=== PATIENT | female | born 1945 | race Caucasian/White ===

== ENCOUNTER 2016-10-19 21:07 | Emergency (ER) | payer MEDICARE, OTHER ==
[2016-10-19 21:24] VITALS: BP 165/108; PULSE 75; TEMP 99; BMI 27.2
[2016-10-19] MEDS ORDERED: CYCLOBENZAPRINE HCL 10 MG TABLET (FP) ONE (21:32)
[2016-10-19] MEDS ORDERED: HYDROmorphone HCL CARPU-JECT 1 MG/1 ML DISP.SYRIN IM ONE (21:32)
[2016-10-19] MEDS ORDERED: CYCLOBENZAPRINE HCL 10 MG TABLET (FP) PO ONE (21:32)
[2016-10-19] MEDS ORDERED: HYDROmorphone HCL CARPU-JECT 1 MG/1 ML DISP.SYRIN ONE (21:33)
--- NOTE | 2016-10-19 21:51 | PDOC ---
History of Present Illness - General Chief Complaint: Pain Stated Complaint: Hip Pain Time Seen by Provider: 10/19/16 21:20 History Source: Patient, Family Exam Limitations: No Limitations - History of Present Illness Initial Comments: 10/19/16 21:35 Patient is a 70 year old female with h/o hypothyroid, arthritis, depresssion, HLD, allergy rhinitis, c/o right hip pain x 1 week. States she feel on 10/14/16 was seen in the ED xray done neg. Has been limping along until this evening about 1 hour ago when the pain got severe and has been unable to walk. Pain now 10/10 spasm like, worse with movement. She has been taking meloxicam and flexeril for the pain with minimal relief. Took Advil today last dose was 6 pm. Denies bowel of bladder incontinence, no saddle anesthesia. PMD: Dr. Chamberlain PMHX: as above PSochx: neg etoh, drug, cig Pfamhx: noncontributory ALL: NKDA GENERAL/CONSTITUTIONAL: [No fever or chills. No weakness. No weight change.] HEAD, EYES, EARS, NOSE AND THROAT: [No change in vision. No ear pain or discharge. No sore throat.] CARDIOVASCULAR: [No chest pain or shortness of breath.] RESPIRATORY: [No cough, wheezing, or hemoptysis.] GASTROINTESTINAL: [No nausea, vomiting, diarrhea or constipation. No rectal bleeding.] GENITOURINARY: [No dysuria, frequency, or change in urination.] MUSCULOSKELETAL: (+) joint or muscle swelling or pain. No neck or back pain.] SKIN AND BREASTS: [No rash or easy bruising.] NEUROLOGIC: [No headache, vertigo, loss of consciousness, or loss of sensation.] PSYCHIATRIC: (+) depression (-) anxiety.] ENDOCRINE: [No increased thirst. No abnormal weight change.] HEMATOLOGIC/LYMPHATIC: [No anemia, easy bleeding, or history of blood clots.] ALLERGIC/IMMUNOLOGIC: [No hives or skin allergy. No latex allergy.] GENERAL: [The patient is awake, alert, and fully oriented, in acute painful distress.] HEAD: [Normal with no signs of trauma.] EYES: [Pupils equal, round and reactive to light, extraocular movements intact, sclera anicteric, conjunctiva clear.] ENT: [Ears normal, nares patent, oropharynx clear without exudates. Moist mucous membranes.] NECK: [Normal range of motion, supple without lymphadenopathy, JVD, or masses.] LUNGS: [Breath sounds equal, clear to auscultation bilaterally. No wheezes, and no crackles.] HEART: [Regular rate and rhythm, normal S1 and S2 without murmur, rub.] ABDOMEN: [Soft, nontender, normoactive bowel sounds. No guarding, no rebound. No masses.] EXTREMITIES: decreased range of motion to the right leg at the hip, tenderness to the right hip and buttock, no edema. No clubbing or cyanosis. No cords, erythema, or tenderness.] NEUROLOGICAL: [Cranial nerves II through XII grossly intact. Normal speech, normal gait.] PSYCH: [Normal mood, normal affect.] SKIN: [Warm, Dry, normal turgor, no rashes or lesions noted.] Past History - Past Medical History Allergies/Adverse Reactions: Allergies Allergy/AdvReac Type Severity Reaction Status Date / Time No Known Allergies Allergy Verified 10/19/16 21:19 Home Medications: Ambulatory Orders Meloxicam [Mobic -] 7.5 mg PO HS 07/28/12 Multivitamin [Multivitamins] 1 each PO DAILY 07/28/12 Levothyroxine [Synthroid -] 88 mcg PO DAILY 01/11/16 Psyllium Seed [Metamucil] 1 each PO DAILY 01/11/16 Simvastatin 40 mg PO HS 01/11/16 Calcium Carbonate/Vitamin D3 [Calcium 500 + Vit D Caplet] 1 each PO DAILY Cyclobenzaprine HCl [Flexeril -] 10 mg PO HS 10/19/16 Oxycodone HCl/Acetaminophen [Percocet 5-325 mg Tablet] 1 tab PO Q4H #20 tablet MDD 6 10/20/16 Anemia: No Asthma: No Cancer: No Cardiac Disorders: No CVA: No COPD: No CHF: No Dementia: No Diabetes: No GI Disorders: Yes (HEMORRHOIDS;COLON POLYPS) Disorders: No HTN: No Hypercholesterolemia: Yes Liver Disease: No Seizures: No Thyroid Disease: Yes (HYPOTHYROIDISM) - Surgical History Abdominal Surgery: No Appendectomy: No Cardiac Surgery: No Cholecystectomy: Yes (01/2015) Lung Surgery: No Neurologic Surgery: No Orthopedic Surgery: No - Immunization History Td Vaccination: Yes Immunization Up to Date: Yes - Psycho/Social/Smoking Cessation Hx Anxiety: No Suicidal Ideation: No Smoking Status: No Smoking History: Never smoked Have you smoked in the past 12 months: No Number of Cigarettes Smoked Daily: 0 Information on smoking cessation initiated: No Hx Alcohol Use: No Drug/Substance Use Hx: No Substance Use Type: None Hx Substance Use Treatment: No *Physical Exam - Vital Signs Last Vital Signs Temp Pulse Resp BP Pulse Ox 99.0 F 75 20 165/108 99 10/19/16 21:11 10/19/16 21:11 10/19/16 21:11 10/19/16 21:11 10/19/16 21:11 ED Treatment Course - RADIOLOGY Radiology Studies Ordered: Category Date Time Status LUMBAR SPINE CT W/O CONTRAST [CT] Stat CT Scan 10/19/16 21:[address] WITHOUT CONTRAST [CT] Stat CT Scan 10/19/16 21:33 Ordered Medical Decision Making - Medical Decision Making 10/19/162119 Patient is a 70 year old female with h/o hypothyroid, arthritis, depresssion, HLD, allergy rhinitis, c/o right hip pain x 1 week, s/p fall. Was limping but but tonight the pain go worse unable to walk will r/o acute fracture. ct pelvis, l-spine Dilaudid 1 mg IM and flexeril 10mg po 10/20/16 00:05 Patient Name: Melisa Verma THIS IS A PRELIMINARYREPORT FROM IMAGING CANNING MACHINE OPERATOR EXAM: CT pelvis without contrast IMAGES: [id number] INDICATION: Right hip pain DATE OF SERVICE: 2016-10-19 22:17:34.0 COMPARISON: none FINDINGS: The pelvic small and large bowel are notable for sigmoid diverticulosis without diverticulitis. The appendix is normal. The uterus and adnexal structures are normal. Urinary bladder is unremarkable. There is no pelvic free fluid. No discrete pelvic lymphadenopathy is identified. Scattered bone densities likely represent bone islands. There is mild osteoarthritis of the SI joints. There are degenerative change of the lower lumbar spine, which are described on the accompanying CT of the lumbar spine. There is early osteoarthritis of both hips. No significant soft tissue abnormalities. IMPRESSION: Minimal osteoarthritis of both hips. Mild osteoarthritis of both SI joints. Degenerative changes lower lumbar spine. Sigmoid diverticulosis THIS DOCUMENT HAS BEEN ELECTRONICALLY SIGNED Robe Camilo MD 10/19/2016 23:06 [place] Please call Imaging Filler Spreader [phone] with questions. Patient Name: Melisa Verma THIS IS A PRELIMINARYREPORT FROM IMAGING CANNING MACHINE OPERATOR EXAM: CT lumbar spine without contrast IMAGES: [id number] INDICATION: Right hip pain DATE OF SERVICE: 2016-10-19 22:10:25.0 COMPARISON: none FINDINGS: There is no fracture or subluxation. The L1-2, L2-3 and L3-4 levels are normal. The L4-5 disc demonstrates a moderate sized bulge and moderate bilateral facet joint arthrosis, resulting in moderate central canal and bilateral recess narrowing with mild bilateral neural foraminal narrowing. L5/S1 disc demonstrates a small bulge with lateral osteophytic ridging and mild facet joint arthrosis which causes mild bilateral neural foraminal narrowing. IMPRESSION: Moderate central canal and both lateral recesses and mild bilateral neural pulmonary L4/5 due to disc bulge and facet joint arthrosis. Mild bilateral pulmonary L5/S1 due to a disc bulge and lateral osteophytic ridging. THIS DOCUMENT HAS BEEN ELECTRONICALLY SIGNED Robe Camilo MD 10/19/2016 23:04 [place] Please call Imaging Filler Spreader [phone] with questions. Patient is much improved she states pain now down to 3/10. She is ambulatory with steady gait. requesting to go home. I discussed the physical exam findings, ancillary test results and final diagnoses with the patient. I answered all of the patient's questions. The patient was satisfied with the care received and felt comfortable with the discharge plan and treatment plan. The Patient agrees to follow up with the primary care physician within 24-72 hours. *DC/Admit/Observation/Transfer Diagnosis at time of Disposition: Sciatica Qualifiers: Laterality: right Qualified Code(s): M54.31 - Sciatica, right side - Discharge Dispostion Disposition: HOME Condition at time of disposition: Stable - Prescriptions Prescriptions: Oxycodone HCl/Acetaminophen [Percocet 5-325 mg Tablet] 1 tab PO Q4H #20 tablet MDD 6 - Referrals Referrals: Merry Ignacio MD [Primary Care Provider] - - Patient Instructions Printed Discharge Instructions: DI for Sciatica Additional Instructions: Your Discharge Instructions: You must call primary care physician within 24 hours to arrange follow-up. Return to the Emergency Department with any new, persistent or worsening symptoms, for fever, chills, SOB, dizziness or any other concerning changes that may occur. you may need to take orthopedist to get referral for rehabilitation
[2016-10-19 23:19] LABS: URINE APPEARANCE SLCLOUDY; URINE BILIRUBIN NEGATIVE (NEGATIVE); URINE BLOOD NEGATIVE (NEGATIVE); URINE COLOR LTYELLOW; URINE GLUCOSE (UA) NEGATIVE (NEGATIVE); URINE KETONE NEGATIVE (NEGATIVE); URINE NITRITE NEGATIVE (NEGATIVE); URINE PROTEIN NEGATIVE (NEGATIVE); URINE UROBILINOGEN NEGATIVE E.U./dl (0.2-1.0)
[2016-10-19 23:20] LABS: URINE LEUK ESTERASE 3+ (NEGATIVE)
[2016-10-19 23:21] LABS: URINE MUCUS RARE; URINE RBC 2 /hpf (0-3); URINE WBC 7 /hpf (3-5)
== END 2016-10-20 00:21 | disposition home or self-care (01) ==
LOC: JER 21:07
PROC: 3E0233Z Introduction of Anti-inflammatory into Muscle, Percutaneous Approach (ICD-10-PCS; principal; 2016-10-19)
DX: M54.31 Sciatica, right side (principal); M16.0 Bilateral primary osteoarthritis of hip; E03.9 Hypothyroidism, unspecified; E78.00 Pure hypercholesterolemia, unspecified; F32.9 Major depressive disorder, single episode, unspecified
CPT/HCPCS: 72131-TC; 72192-TC; 81003; 81015; 96372; 99282-25

== ENCOUNTER 2018-07-03 21:54 | Emergency (ER) | payer MEDICARE ==
[2018-07-03] MEDS ORDERED: ALBUTEROL SO4 2.5/IPRATROPIUM 0.5 INH SOL 3 ML VIAL.NEB. NEB ONE ×2 (22:04→22:09)
[2018-07-03 22:08] VITALS: BP 178/98; PULSE 80; TEMP 98.6; BMI 27.2
--- NOTE | 2018-07-03 22:54 | PDOC ---
History of Present Illness - General Chief Complaint: Respiratory Stated Complaint: COUGH X 4 DAYS Time Seen by Provider: 07/03/18 21:59 - History of Present Illness Initial Comments: 07/03/18 23:08 72 years old past medical history significant for endometriosis osteoarthritis hemorrhoids presents to the ED with 34 day history of cough. No fever clear, sputum. Symptoms are worse at ngiht, intermittent. Also compaing of achy muscular pain but only when coughing at rest not with exertion. Several family members have had the same symptoms over the last 1 week. 07/03/18 23:11 Past History - Past Medical History Allergies/Adverse Reactions: Allergies Allergy/AdvReac Type Severity Reaction Status Date / Time No Known Allergies Allergy Verified 10/19/16 21:19 Home Medications: Ambulatory Orders Meloxicam [Mobic -] 7.5 mg PO HS 07/28/12 Multivitamin [Multivitamins] 1 each PO DAILY 07/28/12 Levothyroxine [Synthroid -] 88 mcg PO DAILY 01/11/16 Psyllium Seed [Metamucil] 1 each PO DAILY 01/11/16 Simvastatin 40 mg PO HS 01/11/16 Calcium Carbonate/Vitamin D3 [Calcium 500 + Vit D Caplet] 1 each PO DAILY Benzonatate [Tessalon Pearls -] 100 mg PO TID #21 capsule 07/03/18 Guaifenesin/Dextromethorphan [Mucinex Fast-Max Dm Max Liquid] 15 ml PO ONCE Anemia: No Asthma: No Cancer: No Cardiac Disorders: No CVA: No COPD: No CHF: No Dementia: No Diabetes: No GI Disorders: Yes (HEMORRHOIDS;COLON POLYPS) Disorders: No HTN: No Hypercholesterolemia: Yes Liver Disease: No Seizures: No Thyroid Disease: Yes (HYPOTHYROIDISM) Other medical history: KNEE PAIN - Surgical History Abdominal Surgery: No Appendectomy: No Cardiac Surgery: No Cholecystectomy: Yes (01/2015) Lung Surgery: No Neurologic Surgery: No Orthopedic Surgery: No - Immunization History Td Vaccination: Yes Immunization Up to Date: Yes - Suicide/Smoking/Psychosocial Hx Smoking Status: No Smoking History: Never smoked Have you smoked in the past 12 months: No Number of Cigarettes Smoked Daily: 0 Hx Alcohol Use: No Drug/Substance Use Hx: No Substance Use Type: None Hx Substance Use Treatment: No Review of Systems - Review of Systems Comments:: 07/03/18 23:08 *Physical Exam - Vital Signs Last Vital Signs Temp Pulse Resp BP Pulse Ox 98.6 F 80 16 178/98 H 99 07/03/18 21:55 07/03/18 21:55 07/03/18 21:55 07/03/18 21:55 07/03/18 21:55 - Physical Exam Comments: 07/03/18 23:09 Vitals: Triage Vital signs reviewed General Appearance: no acute distress, well nourished well developed, Head: Atraumatic, Eyes: Pupils equal reactive round, extraocular movement intact Nose: Nares patent bilaterally;+ nasal congestion Throat: Posterior oropharynx without erythema, mucous membranes moist, Neck: Supple;No Nucal rigidity Chest Wall: Nontender Cardiac: Regular rate and rhythym, no murmurs, no rubs, no gallops, Lungs: Clear to auscultation bilateral, good air movement bilaterally, Abdomen: Soft, non distended, normal bowel sounds, non tender to palpation Extremities: Full range of motion to all extremities, no cyanosis, clubbing, or edema Skin: Warm and dry, no rashes or lesions, no rash, no petechiae Psych: normal mood, normal affect ED Treatment Course - RADIOLOGY Radiology Studies Ordered: Category Date Time Status CXRPORT [CHEST X-RAY PORTABLE*] [RAD] Stat Radiology 07/03/18 22:04 Taken - Medications Given in the ED: ED Medications Discontinued Medications Generic Name Dose Route Start Last Admin Trade Name Freq PRN Reason Stop Dose Admin Albuterol/Ipratropium 1 amp 07/03/18 22:04 07/03/18 22:12 Duoneb - NEB 07/03/18 22:05 1 amp ONCE ONE Administration Medical Decision Making - Medical Decision Making 07/03/18 23:09 Well-appearing no apparent distress history examination consistent with viral URI on examination patient with nasal congestion red nose clear sputum lungs are clear to auscultation a chest x-ray was performed which demonstrated no acute pathology no pneumonia was demonstrated. History and examination consistent with URI 1 Duo Neb treatment given in the emergency department with some improvement of symptoms we'll recommend Tensilon Perles Coricidin decongestant and Ventolin MDI when necessary Findings, need for follow-up and strict return instructions discussed with patient. *DC/Admit/Observation/Transfer Diagnosis at time of Disposition: Upper respiratory infection Qualifiers: URI type: unspecified URI Qualified Code(s): J06.9 - Acute upper respiratory infection, unspecified - Discharge Dispostion Disposition: HOME Condition at time of disposition: Good Decision to Admit order: No - Referrals Referrals: Merry Ignacio MD [Primary Care Provider] - - Patient Instructions Printed Discharge Instructions: DI for Viral Upper Respiratory Infection -- Adult Additional Instructions: Drink plenty of fluids. Purchase [id number] Coricidin decongestant. Take as prescribed. Tessalon Perles as prescribed. Ventolin nebulizer every 4-6 hours as needed for cough. Return to ED immediately for any fever severe chest pain shortness of breath or for any concerns. Otherwise follow-up with your primary care provider in 2-3 days. - Post Discharge Activity
== END 2018-07-03 23:20 | disposition home or self-care (01) ==
LOC: SUPCPDRO 21:54 → FER 21:54
PROC: 3E0F7GC Introduction of Other Therapeutic Substance into Respiratory Tract, Via Natural or Artificial Opening (ICD-10-PCS; principal; 2018-07-03)
DX: J06.9 Acute upper respiratory infection, unspecified (principal); E03.9 Hypothyroidism, unspecified
CPT/HCPCS: 71045-TC-FY; 99281-25

== ENCOUNTER 2019-10-10 10:33 | Emergency (ER) | payer OTHER, MEDICARE ==
[2019-10-10 10:56] VITALS: TEMP 98; BMI 27.2
--- NOTE | 2019-10-10 11:05 | PDOC ---
History of Present Illness - General Chief Complaint: Rectal Bleed Stated Complaint: RECTAL BLEEDING Time Seen by Provider: 10/10/19 10:37 History Source: Patient Exam Limitations: No Limitations - History of Present Illness Travel History: No Initial Comments: 10/10/19 11:05 73y F hx of GERD, HL, diverticulosis, endometriosis, OA, thyroid disease, constipation, hemorroids, presents with complaint of 2 days of rectal bleeding. Pt on metamucil for her constipation at baseline, since thursday, pt endorses increassed amount of bleeding in the toilet bowl and in the toilet paper. pt states her stool doesnt appear black, but appears yellow/brown when she wipes. Patient also notes that as she is having a bowel movement she will have dripping of blood. Pt notse she has chronic hemorroids but has never had bleding. She notes that the stool is well formed and she does strain slightly, But has not been pushing more than usual. pt fitz any cp, sob, fever/chills, n/v, lightheadedness, palpitations, abd pain , back pain, kendall. pt had colonscopy showing diverticulosis 6 yrs ago and neg endoscopy 2 years ago. social: pt denies any recational drug use, smoking Past History - Past Medical History Allergies/Adverse Reactions: Allergies Allergy/AdvReac Type Severity Reaction Status Date / Time No Known Allergies Allergy Verified 10/10/19 10:35 Home Medications: Ambulatory Orders Meloxicam [Mobic -] 7.5 mg PO HS 07/28/12 Multivitamin [Multivitamins] 1 each PO DAILY 07/28/12 Psyllium Seed [Metamucil] 1 each PO DAILY 01/11/16 Simvastatin 40 mg PO HS 01/11/16 Levothyroxine [Synthroid -] 100 mcg PO DAILY 10/10/19 Omeprazole 40 mg PO DAILY 10/10/19 Anemia: No Asthma: No Cancer: No Cardiac Disorders: No CVA: No COPD: No CHF: No Dementia: No Diabetes: No GI Disorders: Yes (HEMORRHOIDS;COLON POLYPS) Disorders: No HTN: No Hypercholesterolemia: Yes Liver Disease: No Seizures: No Thyroid Disease: Yes (HYPOTHYROIDISM) Other medical history: gallstone, pancreatitis,PNA,sepsis - Surgical History Abdominal Surgery: No Appendectomy: No Cardiac Surgery: No Cholecystectomy: Yes (01/2015) Lung Surgery: No Neurologic Surgery: No Orthopedic Surgery: No - Immunization History Td Vaccination: Yes Immunization Up to Date: Yes - Psycho Social/Smoking Cessation Hx Smoking Status: No Smoking History: Never smoked Have you smoked in the past 12 months: No Number of Cigarettes Smoked Daily: 0 Hx Alcohol Use: No Drug/Substance Use Hx: No Substance Use Type: None Hx Substance Use Treatment: No Review of Systems - Review of Systems Able to Perform ROS?: Yes Comments:: 10/10/19 11:43 Constitutional - no reported Fever, Chills, HEENT: no reported vision changes, sore throat Respiratory: no reported cough, sob, hemoptysis Cardiac: no reported chest pain, palpitations, light headedness, leg swelling Abd/GI: +blood per rectum, no reported abd pain, nausea, vomiting, melena, diarrhea : no reported dysuria, frequency, discharge Musculskelatal - no reported back pain, joint swelling skin - no reported bruising, erythema, rash neurological: no reported headache, numbness, focal weakness, tingling, ataxia, hematologic: no reported easy bruising, easy bleeding *Physical Exam - Vital Signs Last Vital Signs Temp Pulse Resp BP Pulse Ox 98 F 84 18 163/79 98 10/10/19 10:35 10/10/19 10:35 10/10/19 10:35 10/10/19 10:35 10/10/19 10:35 - Physical Exam 10/10/19 11:43 GENERAL: The patient is awake, alert, and fully oriented, Nontoxic - in no acute distress. HEAD: Normocephalic, atraumatic. EYES: extraocular movements intact, sclera anicteric, conjunctiva clear. ENT: Normal voice, Moist mucous membranes. NECK: Normal range of motion, supple LUNGS: Breath sounds equal, clear to auscultation bilaterally. No wheezes, no rhonchi, no rales. HEART: Regular rate and rhythm, normal S1 and S2 without murmur, rub or gallop. ABDOMEN: Soft, nontender, No guarding, no rebound. No CVA tenderness RECTAL: external hemorroid without active bleeding, stool is yellow without signs of rosalina blood or melena. EXTREMITIES: Normal range of motion, no edema. NEUROLOGICAL: No facial assymetry, Normal speech, PSYCH: Normal mood, normal affect. SKIN: Warm, Dry, normal turgor, ED Treatment Course - LABORATORY CBC & Chemistry Diagram: 10/10/19 11:50 10/10/19 11:50 Medical Decision Making - Medical Decision Making 10/10/19 11:47 Suspect the patient's source of bleeding is hemorrhoidal in nature, no signs of upper GI bleed, diverticular bleed. Her yellow stool is reassuring Will obtain a CBC to screen for anemia, anticipate discharge with GI follow-up for management of her external hemorrhoid. 10/10/19 12:23 Patient's blood work is unremarkable, stool guaiac negative for blood. I will discharge patient follow-up with her GI doctor, return precautions were discussed. We will have the patient continue Metamucil, also encourage hydration and increase fiber intake I discussed the physical exam findings, ancillary test results and final diagnoses with the patient. I answered all of the patient's questions. The patient was satisfied with the care received and felt comfortable with the discharge plan and treatment plan. The patient will call their primary care physician within 24 hours to arrange follow-up and will return to the Emergency Department with any new, persistent or worsening symptoms. Discharge - Discharge Information Problems reviewed: Yes Clinical Impression/Diagnosis: Bleeding hemorrhoid Condition: Improved Disposition: HOME - Admission No - Follow up/Referral Referrals: Felix Solitario MD [Primary Care Provider] - - Patient Discharge Instructions Patient Printed Discharge Instructions: DI for Hemorrhoids, DI for Rectal Bleeding Additional Instructions: Return to the emergency department immediately with ANY new, persistent or worsening symptoms including worsening Persistent bleeding, black stool, abdominal pain, fevers, chills, inability to tolerate oral intake or any other concerns. Please increase your water intake, increasing physical activity and increase her fiber intake Continue taking your Metamucil. Do not strain or push when having a bowel movement. Do not sit on the toilet for prolonged period of time when having bowel movement. You MUST call and follow up with your GI doctor for further evaluation of your symptoms. Your emergency department visit is not complete without a followup with your doctor for reevaluation. Results were discussed with you. Please make sure your doctor reviews the results of your emergency evaluation. Print Language: [place] - Post Discharge Activity
[2019-10-10 12:03] LABS: BASO % 0.7 % (0-2.0); EOS % 1.6 % (0-4.5); HEMATOCRIT 38.3 % (32.4-45.2); HEMOGLOBIN 12.7 GM/dl (10.7-15.3); LYMPH % 39.1 % (8-40); MCH 28.2 pg (25.7-33.7); MCHC 33.2 g/dl (32.0-36.0); MEAN CELL VOLUME 84.9 fl (80-96); MEAN PLT VOLUME 10.1 fl (7.5-11.1); MONO % 9.2 % (3.8-10.2); NEUT % 49.4 % (42.8-82.8); PLATELET COUNT 223 K/MM3 (134-434); RBC 4.51 M/mm3 (3.60-5.2); RDW 13.2 % (11.6-15.6); WHITE BLOOD COUNT 7.3 K/mm3 (4.0-10.8)
[2019-10-10 12:11] LABS: ALBUMIN 3.7 g/dl (3.4-5.0); CREATININE 0.8 mg/dl (0.55-1.3); POTASSIUM 4.1 mmol/L (3.5-5.1); TOT PROT 6.4 g/dl (6.4-8.2)
[2019-10-10 12:42] VITALS: BP 142/78; PULSE 80
== END 2019-10-10 12:42 | disposition home or self-care (01) ==
LOC: FER 10:33
DX: K64.8 Other hemorrhoids (principal); E03.9 Hypothyroidism, unspecified; E78.00 Pure hypercholesterolemia, unspecified
CPT/HCPCS: 36415; 80053; 82272; 85025; 99283-25

== ENCOUNTER 2022-08-25 19:26 | Emergency (ER) | payer OTHER ==
[2022-08-25 19:40] VITALS: BP 175/89; PULSE 82; RESP 16; TEMP 99; BMI 25.2
[2022-08-25] MEDS ORDERED: AZITHROMYCIN 500 MG TABLET PO ONE (21:46)
[2022-08-25] MEDS ORDERED: AZITHROMYCIN 250 MG TABLET ONE (21:48)
== END 2022-08-25 21:53 | disposition home or self-care (01) ==
LOC: FER 19:26
DX: J18.9 Pneumonia, unspecified organism (principal)
CPT/HCPCS: 0241U-QW; 71046-TC-FY; 99284-25

== ENCOUNTER 2023-05-31 15:17 | Emergency (ER) | payer OTHER ==
[2023-05-31 15:47] VITALS: BP 162/84; PULSE 80; RESP 16; TEMP 98; BMI 23.2
== END 2023-05-31 17:10 | disposition home or self-care (01) ==
LOC: FER 15:17
DX: R22.32 Localized swelling, mass and lump, left upper limb (principal); M79.81 Nontraumatic hematoma of soft tissue
CPT/HCPCS: 73130-TC-LT-FY; 99283-25

== ENCOUNTER 2023-05-31 17:56 | Emergency (ER) | payer OTHER ==
[2023-05-31 18:04] VITALS: BP 138/89; PULSE 82; RESP 18; TEMP 98; BMI 26.0
[2023-05-31 20:16] LABS: BASO % 1.1 % (0-2.0); EOS % 1.7 % (0-4.5); HEMATOCRIT 41.9 % (32.4-45.2); HEMOGLOBIN 14.4 GM/dL (10.7-15.3); LYMPH % 34.4 % (8-40); MCH 28.9 pg (25.7-33.7); MCHC 34.5 g/dl (32.0-36.0); MEAN CELL VOLUME 83.8 fl (80-96); MEAN PLT VOLUME 9.3 fl (7.5-11.1); MONO % 6.4 % (3.8-10.2); NEUT % 56.4 % (42.8-82.8); PLATELET COUNT 254 10^3/uL (134-434); RDW 13.9 % (11.6-15.6); WHITE BLOOD COUNT 9.5 K/mm3 (4.0-10.0)
[2023-05-31 20:40] LABS: POTASSIUM 4.6 mmol/L (3.5-5.1)
[2023-05-31 20:43] LABS: CALCIUM 9.8 mg/dL (8.5-10.1)
[2023-05-31 20:44] LABS: ALBUMIN 4.2 g/dl (3.4-5.0); BLOOD UREA NITROGEN 25.8 mg/dL (7-18)
[2023-05-31 20:47] LABS: CREATININE 0.9 mg/dL (0.55-1.3)
[2023-05-31 20:49] LABS: BILIRUBIN,TOTAL 0.8 mg/dL (0.2-1); TOT PROT 7.9 g/dl (6.4-8.2)
== END 2023-05-31 22:59 | disposition home or self-care (01) ==
LOC: JER 17:56
DX: M79.642 Pain in left hand (principal)
CPT/HCPCS: 36415; 73206-TC-RT; 80053; 85025; 99285-25; Q9967

== ENCOUNTER 2024-01-07 21:16 | Inpatient (IN) | payer OTHER ==
[2024-01-07] MEDS ORDERED: ACETAMINOPHEN 325 MG TABLET (FP) ONE (22:30)
[2024-01-07] MEDS ORDERED: LORazepam 1 MG TABLET ONE (22:30)
[2024-01-07] MEDS: ACETAMINOPHEN 325 MG TABLET (FP) PO ONE (22:51)
[2024-01-07] MEDS: LORazepam 2 MG TABLET PO ONE (22:51)
[2024-01-07 22:55] LABS: BASO % 0.9 % (0-2.0); EOS % 0.2 % (0-4.5); HEMATOCRIT 36.5 % (32.4-45.2); HEMOGLOBIN 11.9 GM/dL (10.7-15.3); LYMPH % 25.2 % (8-40); MCH 27.6 pg (25.7-33.7); MCHC 32.6 g/dl (32.0-36.0); MEAN CELL VOLUME 84.6 fl (80-96); MONO % 6.1 % (3.8-10.2); NEUT % 67.6 % (42.8-82.8); PLATELET COUNT 226 10^3/uL (134-434); RBC 4.31 M/mm3 (3.60-5.2); RDW 14.7 % (11.6-15.6); WHITE BLOOD COUNT 12.5 K/mm3 (4.0-10.0)
[2024-01-07 23:02] LABS: PROTHROMBIN TIME (PATIENT) 11.3 SEC (9.7-13.0)
[2024-01-07 23:04] LABS: ACTIVATED PTT 30.5 SECONDS (25.2-36.5)
[2024-01-08] MEDS ORDERED: ASPIRIN 81 MG CHEWABLE TABLETS ONE (00:01)
[2024-01-08] MEDS: ASPIRIN 81 MG CHEWABLE TABLETS PO ONE (00:10)
[2024-01-08 01:32] LABS: POTASSIUM 5.1 mmol/L (3.5-5.1)
[2024-01-08 01:34] LABS: ALBUMIN 3.3 g/dl (3.4-5.0); CALCIUM 9.6 mg/dL (8.5-10.1)
[2024-01-08 01:35] LABS: BLOOD UREA NITROGEN 26.7 mg/dL (7-18)
[2024-01-08 01:37] LABS: CREATININE 0.9 mg/dL (0.55-1.3)
[2024-01-08 01:39] LABS: BILIRUBIN,TOTAL 0.7 mg/dL (0.2-1); TOT PROT 6.6 g/dl (6.4-8.2)
[2024-01-08 07:44] LABS: HEMATOCRIT 33.4 % (32.4-45.2); HEMOGLOBIN 11.3 GM/dL (10.7-15.3); MCH 28.8 pg (25.7-33.7); MCHC 33.9 g/dl (32.0-36.0); MEAN CELL VOLUME 84.8 fl (80-96); MEAN PLT VOLUME 9.1 fl (7.5-11.1); PLATELET COUNT 194 10^3/uL (134-434); RBC 3.93 M/mm3 (3.60-5.2); RDW 14.6 % (11.6-15.6); WHITE BLOOD COUNT 7.8 K/mm3 (4.0-10.0)
[2024-01-08 08:05] LABS: MAGNESIUM 2.2 mg/dL (1.8-2.4)
[2024-01-08 08:09] LABS: PHOSPHOROUS 4.6 mg/dL (2.5-4.9)
[2024-01-08 16:21] VITALS: BMI 22.3
[2024-01-09] MEDS: LEVOTHYROXINE NA 125 MCG TABLET (FP) PO SCH (06:20)
[2024-01-09] MEDS: ASPIRIN COATED 81 MG TABLET.EC PO SCH (09:45)
[2024-01-09] MEDS: ROSUVASTATIN CA 20 MG TABLET PO SCH (09:46)
[2024-01-09] MEDS: DONEPEZIL HCL 5 MG TABLET (FP) PO SCH (09:46)
[2024-01-09] MEDS: LISINOPRIL 20 MG TABLET PO SCH (09:46)
[2024-01-10] MEDS ORDERED: ACETAMINOPHEN 1000 MG/100 ML BAG IVPB PRN (10:22)
[2024-01-10] MEDS: ACETAMINOPHEN 325 MG TABLET (FP) PO PRN (10:51)
[2024-01-10 17:22] LABS: BASO % 0.4 % (0-2.0); EOS % 1.1 % (0-4.5); HEMOGLOBIN 11.7 GM/dL (10.7-15.3); MCH 28.6 pg (25.7-33.7); MCHC 33.5 g/dl (32.0-36.0); MEAN CELL VOLUME 85.4 fl (80-96); MEAN PLT VOLUME 9.1 fl (7.5-11.1); MONO % 7.8 % (3.8-10.2); NEUT % 52.7 % (42.8-82.8); PLATELET COUNT 220 10^3/uL (134-434); RDW 15.1 % (11.6-15.6); WHITE BLOOD COUNT 7.8 K/mm3 (4.0-10.0)
[2024-01-11 09:37] VITALS: RESP 18
[2024-01-11 14:31] VITALS: BP 111/70; PULSE 87; TEMP 98.1
== END 2024-01-11 17:15 | disposition home or self-care (01) | DRG 605 ==
LOC: JER 21:16 → JERBED 01-08 00:30 → J4S 01-08 12:29
PROVIDERS: ADMIT Internal Medicine; ATTEND Internal Medicine
DX: S00.03XA Contusion of scalp, initial encounter (principal); I10 Essential (primary) hypertension; E78.5 Hyperlipidemia, unspecified; E03.9 Hypothyroidism, unspecified; F03.90 Unspecified dementia, unspecified severity, without behavioral disturbance, psychotic disturbance, mood disturbance, and anxiety; R79.89 Other specified abnormal findings of blood chemistry; W22.8XXA Striking against or struck by other objects, initial encounter; Y93.89 Activity, other specified; Y92.89 Other specified places as the place of occurrence of the external cause; Y99.8 Other external cause status
CPT/HCPCS: 36415; 70450-TC; 71045-TC-FY; 72125-TC; 80053; 82550; 83735; 84100; 84484; 85025; 85027; 85610; 85730; 93005; 93010; 93306-TC; 97116-GP; 97161-GP; 99285-25